=== PATIENT | female | born 1955 | race Caucasian/White ===

== ENCOUNTER 2018-11-18 07:07 | Emergency (ER) | payer OTHER ==
--- NOTE | 2018-11-18 08:03 | UC ---
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 SINCE THEN SHE HAS HAD PERSISTENT PAIN IN THE RIGHT GROIN WHICH SHE WAS TOLERATING UNTIL LAST NIGHT WHEN SHE STATED IT BECAME MUCH WORSE. NO FEVER, NAUSEA, SOB, CP. NO DRAINAGE FROM THE SITE. DID NOT CALL HER NEUROSURGEON. - History of Current Complaint Chief Complaint: UCAbdominalPain Time Seen by Provider: 11/18/18 07:17 Stated Complaint: PAIN IN GROIN AREA Hx Obtained From: Patient, Family/Liquid Loader - Onset/Duration: Gradual Onset, Lasting Days, Still Present Timing: Constant Onset Severity: Moderate Current Severity: Moderate Pain Intensity: 5 Pain Scale Used: 0-10 Numeric Location: Discrete - RIGHT GROIN Character: Painful Aggravating Factor(s): Touch Alleviating Factor(s): Nothing Associated Signs & Symptoms: Positive: Bruising, Tenderness - Allergy/Home Medications Allergies/Adverse Reactions: Allergies Allergy/AdvReac Type Severity Reaction Status Date / Time amoxicillin Allergy Mild Itching Uncoded 11/18/18 07:21 Home Medications: Home Medications Calcium Carbonate [Calcium] 1 tab PO DAILY 11/18/18 [History Confirmed 11/18/18] Estradiol 1 mg PO DAILY 11/18/18 [History Confirmed 11/18/18] Pantoprazole Sodium [Protonix] 40 mg PO DAILY 11/18/18 [History Confirmed ] PMH/Surg Hx/FS Hx/Imm Hx 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 angiogram. cholecystectomy - Family History Known Family History: Positive: Non-Contributory - Social History Alcohol Use: Occasionally Substance Use Type: None Smoking Status (MU): Never Smoked Tobacco Review of Systems All Other Systems Reviewed And Are Negative: Yes Constitutional: Positive: Negative Skin: Positive: Bruising Respiratory: Positive: Negative Cardiovascular: Positive: Negative Gastrointestinal: Positive: Negative Physical Exam Triage Information Reviewed: Yes Appearance: Well-Appearing, No Pain Distress, Well-Nourished Vital Signs: Initial Vital Signs Temp 98.5 F 11/18/18 07:15 Pulse 86 11/18/18 07:15 Resp 18 11/18/18 07:15 BP 130/78 11/18/18 07:15 Pulse Ox 99 11/18/18 07:15 Vital Signs Reviewed: Yes Eyes: Positive: Conjunctiva Clear ENT: Positive: Hearing grossly normal Neck: Positive: Supple Respiratory: Positive: No respiratory distress, No accessory muscle use Cardiovascular: Positive: Pulses Normal Abdomen Description: Positive: Soft Musculoskeletal: Positive: No Edema Neurological: Positive: Alert Psychological: Positive: Age Appropriate Behavior Skin: Positive: Other - BRUISING RIGHT GROIN WITH TENDERNESS. NO PULSATILE MASS Diagnostics - Radiology RIGHT GROIN US Radiology Interpretation Completed By: Radiologist Summary of Radiographic Findings: 1. NO EVIDENCE FOR PSEUDOANEURYSM. 2. SMALL HEMATOMA. Course/Dx - Diagnoses Provider Diagnosis: Hematoma following angiography Discharge - Sign-Out/Discharge Documenting (check all that apply): Patient Departure All imaging exams completed and their final reports reviewed: Yes - Discharge Plan Condition: Stable Disposition: HOME Patient Education Materials: Hematoma (ED) Referrals: Analia Goss MD [Primary Care Provider] - If Needed Jim Olmos MD [Medical Doctor] - (KEEP YOUR FOLLOW-UP NEXT WEEK) Additional Instructions: ULTRASOUND TODAY SHOWS A SMALL HEMATOMA. NO ACUTE INTERVENTION INDICATED PRESENTLY. SEEK REEVALUATION IF YOU DEVELOP FEVER, NAUSEA, WORSENING PAIN, CHEST PAIN, SHORTNESS OF BREATH OR ANY OTHER CONCERNING SYMPTOMS. CALL DR. OLMOS'S OFFICE TODAY TO ADVISE HIM OF THIS FINDING. KEEP YOUR APPOINTMENT WITH HIM NEXT WEEK OR SEE HIM EARLIER IF THEY RECOMMEND. - Billing Disposition and Condition Condition: STABLE Disposition: Home
[2018-11-18 09:23] VITALS: BP 140/82
== END 2018-11-18 09:42 | disposition home or self-care (01) ==
LOC: UCEAST 07:07
DX: I97.638 Postprocedural hematoma of a circulatory system organ or structure following other circulatory system procedure (principal); Y84.8 Other medical procedures as the cause of abnormal reaction of the patient, or of later complication, without mention of misadventure at the time of the procedure; Y92.234 Operating room of hospital as the place of occurrence of the external cause; I67.1 Cerebral aneurysm, nonruptured
CPT/HCPCS: 99211; G0463